=== PATIENT | female | born 1970 | race Caucasian/White ===

== ENCOUNTER 2016-08-20 15:15 | Emergency (ER) | payer MEDICAID, OTHER ==
[~2016-08-20] VITALS: Ht 167.6 cm; Wt 105.0 kg
[~2016-08-20 15:15] MED LIST: CIME400T; METF500T4
[2016-08-20 17:57] LABS: BASOPHILS % 0.3 % (0.0-2.0); EOSINOPHILS % 2.6 % (0.0-5.0); HEMATOCRIT. 33.2 % (36.0-48.0); HEMOGLOBIN. 10.5 g/dL (12.0-16.0); LYMPHOCYTES % 22.8 % (20.0-50.0); MEAN CORPUSCULAR HEMOGLOBIN 22.2 pg (28.0-32.0); MEAN CORPUSCULAR VOLUME 70.4 fL (81.0-99.0); MEAN PLATELET VOLUME 8.2 fl (7.4-10.4); MONOCYTES % 5.7 % (2.0-8.0); NEUTROPHILS % 68.6 % (40.0-76.0); PLATELET 385 x1000/uL (130-400); RED BLOOD CELL COUNT 4.71 mill/uL (4.2-5.4); RED CELL DISTRIBUTION WIDTH 16.3 % (11.6-14.6)
[2016-08-20 18:04] LABS: CHLORIDE 102 mEq/L (98-107)
[2016-08-20 18:07] LABS: CARBON DIOXIDE 30 mEq/L (21-32); ETHANOL BLOOD < 10 mg/dL
[2016-08-20 18:08] LABS: CLARITY URINE CLEAR (CLEAR); COLOR URINE YELLOW (YELLOW); GLUCOSE URINE TRACE (NEGATIVE); KETONES URINE NEGATIVE (NEGATIVE); LEUKOCYTE ESTERASE URINE TRACE (NEGATIVE); NITRITE URINE NEGATIVE (NEGATIVE); OCCULT BLOOD URINE NEGATIVE (NEGATIVE); PH URINE 6.5 (4.5-8.0); PROTEIN URINE NEGATIVE (NEGATIVE); SPECIFIC GRAVITY URINE 1.006 (1.005-1.030); UROBILINOGEN URINE 0.2 E.U./dL (0.2-1.0)
[2016-08-20 18:19] LABS: *AMPHETAMINES SCREEN URINE NEGATIVE (NEGATIVE); *BARBITURATES SCREEN URINE NEGATIVE (NEGATIVE); *BENZODIAZEPINES SCREEN URINE NEGATIVE (NEGATIVE); *COCAINE SCREEN URINE NEGATIVE (NEGATIVE); CANNABINOID URINE SCREEN NEGATIVE (NEGATIVE); METHADONE URINE SCREEN NEGATIVE (NEGATIVE); OPIATES URINE SCREEN NEGATIVE (NEGATIVE); PHENCYCLIDINE URINE SCREEN NEGATIVE (NEGATIVE)
[2016-08-20] MEDS ORDERED: FAMOTIDINE 20MG TABLET PO ONE (19:15)
[2016-08-20] MEDS ORDERED: MORPHINE SULFATE 10 MG/ML CPJ IM ONE ×2 (19:15→19:30)
[2016-08-20] MEDS ORDERED: MAGNESIUM/ALUMINUM HYDROXIDE/SIMETHICONE 30ML UDC PO ONE (19:15)
[2016-08-20] MEDS ORDERED: ONDANSETRON 4MG ODT PO ONE (19:15)
[2016-08-20] MEDS ORDERED: MORPHINE SULFATE 10 MG/ML CPJ IM NR (19:45)
[2016-08-20 21:26] VITALS: BP 119/53
== END 2016-08-20 21:26 | disposition home or self-care (01) ==
LOC: ER 15:15
DX: R10.13 Epigastric pain (principal); R11.0 Nausea; E11.9 Type 2 diabetes mellitus without complications; D64.9 Anemia, unspecified
CPT/HCPCS: 36415; 80053; 80305; 81001; 81025; 83690; 85025; 93005; 96372; 99285; G0482; J2270; Q0162

== ENCOUNTER 2022-10-23 11:00 | Emergency (ER) | payer MEDICAID ==
[~2022-10-23] VITALS: Ht 167.6 cm; Wt 98.0 kg
[~2022-10-23 11:00] MED LIST changes: +METF-414; -METF500T4
[2022-10-23 11:08] VITALS: O2SAT 97
[2022-10-23] MEDS ORDERED: FAMOTIDINE 20MG TABLET PO SCH (11:30)
[2022-10-23] MEDS ORDERED: PREDNISONE 20MG TABLET PO ONE (11:30)
[2022-10-23] MEDS ORDERED: DIPHENHYDRAMINE 50MG CAPSULE PO ONE (11:30)
[2022-10-23] MEDS ORDERED: DIPHENHYDRAMINE 25MG CAPSULE PO SCH (12:15)
[2022-10-23] MEDS ORDERED: P20 MT (12:47)
[2022-10-23] MEDS ORDERED: DIPH25CA83 MT (12:47)
[2022-10-23] MEDS ORDERED: EPIN0.3P3 IM (12:47)
[2022-10-23 13:37] VITALS: BP 156/81; PULSE 62; RESP 19; TEMP 98.7
== END 2022-10-23 13:38 | disposition home or self-care (01) ==
LOC: ER 11:12
DX: T78.40XA Allergy, unspecified, initial encounter (principal); I10 Essential (primary) hypertension; E11.9 Type 2 diabetes mellitus without complications; X58.XXXA Exposure to other specified factors, initial encounter
CPT/HCPCS: 99284; J7512; Q0163

== ENCOUNTER 2023-01-11 19:48 | Emergency (ER) | payer MEDICAID ==
[~2023-01-11] VITALS: Ht 165.1 cm; Wt 90.9 kg
[~2023-01-11 19:48] MED LIST changes: +DIPH25CA83 MT; +EPIN0.3P3 IM; +P20 MT
[2023-01-11 20:01] VITALS: O2SAT 97
[2023-01-11] MEDS ORDERED: ACETAMINOPHEN 500MG TABLET PO ONE (22:00)
[2023-01-11] MEDS ORDERED: IBUPROFEN 600MG TABLET PO ONE (22:00)
[2023-01-11 22:43] VITALS: BP 153/69
[2023-01-11] MEDS ORDERED: ACET-2708 MT (23:12)
[2023-01-11] MEDS ORDERED: AZIT500T8 MT (23:12)
[2023-01-11 23:34] VITALS: PULSE 75; RESP 20; TEMP 99.9
== END 2023-01-11 23:36 | disposition home or self-care (01) ==
LOC: ER 19:48
DX: J18.9 Pneumonia, unspecified organism (principal); J02.9 Acute pharyngitis, unspecified; E11.9 Type 2 diabetes mellitus without complications
CPT/HCPCS: 71045; 81025; 87070; 87430; 99284

== ENCOUNTER 2023-09-10 19:22 | Emergency (ER) | payer MEDICAID ==
[~2023-09-10] VITALS: Ht 157.5 cm; Wt 95.5 kg
[~2023-09-10 19:22] MED LIST changes: +ACET-2708 MT; +AZIT500T8 MT
[2023-09-10 19:26] VITALS: O2SAT 99
[2023-09-10 22:20] VITALS: BP 143/87; PULSE 78; RESP 18; TEMP 98.2
== END 2023-09-10 22:20 | disposition home or self-care (01) ==
LOC: ER 19:22
DX: S93.401A Sprain of unspecified ligament of right ankle, initial encounter (principal); E11.9 Type 2 diabetes mellitus without complications; W18.30XA Fall on same level, unspecified, initial encounter; Y93.01 Activity, walking, marching and hiking; Y92.89 Other specified places as the place of occurrence of the external cause; Y99.8 Other external cause status
CPT/HCPCS: 73610; 99283; Z7610

== ENCOUNTER 2024-07-02 13:16 | Emergency (ER) | payer MEDICAID, OTHER ==
[~2024-07-02] VITALS: Ht 167.6 cm; Wt 90.0 kg
[2024-07-02 13:40] VITALS: O2SAT 100
[2024-07-02] MEDS ORDERED: LIDO-53 TP (15:20)
[2024-07-02] MEDS ORDERED: NAPR-681 MT (15:20)
[2024-07-02] MEDS: LIDOCAINE 5% PATCH TOP SCH (15:28)
[2024-07-02 15:41] VITALS: BP 129/72; PULSE 71; RESP 16; TEMP 36.9; O2SAT 100
== END 2024-07-02 15:43 | disposition home or self-care (01) ==
LOC: ER 13:16
DX: M17.12 Unilateral primary osteoarthritis, left knee (principal); M25.562 Pain in left knee; E11.9 Type 2 diabetes mellitus without complications; Z79.1 Long term (current) use of non-steroidal anti-inflammatories (NSAID)
CPT/HCPCS: 73562; 99283